=== PATIENT | female | born 1960 | race Two or more races ===

== ENCOUNTER 2017-11-26 09:33 | Outpatient (CLI) | payer OTHER | END 2017-11-26 16:41 | disposition home or self-care (01) | LOC: MAMO-SONO 09:33 | DX: Z12.31 Encounter for screening mammogram for malignant neoplasm of breast (principal); Z87.898 Personal history of other specified conditions; N62 Hypertrophy of breast ==

== ENCOUNTER 2017-11-26 10:57 | Outpatient (CLI) | payer OTHER | END 2017-11-26 11:30 | disposition home or self-care (01) | LOC: NUCLEAR 10:57 | DX: M81.0 Age-related osteoporosis without current pathological fracture (principal) ==

== ENCOUNTER → 2017-11-26 | Outpatient (CLI) | payer OTHER | END | disposition home or self-care (01) | LOC: LAB 07:35 | DX: I10 Essential (primary) hypertension (principal); E11.9 Type 2 diabetes mellitus without complications; E03.8 Other specified hypothyroidism; E78.2 Mixed hyperlipidemia; K92.1 Melena; D64.0 Hereditary sideroblastic anemia; M81.0 Age-related osteoporosis without current pathological fracture ==

== ENCOUNTER → 2018-01-02 | Emergency (ER) | payer OTHER ==
[~2018-01-02] VITALS: Ht 152.4 cm; Wt 78.0 kg
[~2018-01-02] MED LIST: ATIVAN1 M1; AUBAGIO14 MG; WELLBUTRIN XL150 M1
== END | disposition home or self-care (01) ==
LOC: ER 16:13
DX: J11.1 Influenza due to unidentified influenza virus with other respiratory manifestations (principal); K52.9 Noninfective gastroenteritis and colitis, unspecified

== ENCOUNTER 2018-01-04 10:52 | Emergency (ER) | payer OTHER ==
[~2018-01-04] VITALS: Ht 152.4 cm; Wt 78.0 kg
== END 2018-01-04 16:28 | disposition home or self-care (01) ==
LOC: ER 10:52
DX: K52.9 Noninfective gastroenteritis and colitis, unspecified (principal)

== ENCOUNTER 2018-01-29 10:47 | Outpatient (CLI) | payer OTHER | END 2018-01-29 11:15 | disposition home or self-care (01) | LOC: LAB 10:47 | DX: Z86.010 Personal history of colon polyps (principal); K21.9 Gastro-esophageal reflux disease without esophagitis; R10.13 Epigastric pain; R74.0 Nonspecific elevation of levels of transaminase and lactic acid dehydrogenase [LDH]; R19.7 Diarrhea, unspecified ==

== ENCOUNTER → 2018-01-29 | Outpatient (CLI) | payer OTHER | END | disposition home or self-care (01) | LOC: SONOGRAMA 09:55 | DX: Z86.010 Personal history of colon polyps (principal); K21.9 Gastro-esophageal reflux disease without esophagitis; R74.0 Nonspecific elevation of levels of transaminase and lactic acid dehydrogenase [LDH]; R10.13 Epigastric pain; R10.30 Lower abdominal pain, unspecified; R19.7 Diarrhea, unspecified ==

== ENCOUNTER 2018-05-30 12:40 | Emergency (ER) | payer OTHER ==
[~2018-05-30] VITALS: Ht 162.6 cm; Wt 77.1 kg
[2018-05-30] MEDS ORDERED: NEURONTIN300 MG (13:01)
== END 2018-05-30 15:58 | disposition home or self-care (01) ==
LOC: ER 12:40
DX: N76.4 Abscess of vulva (principal)

== ENCOUNTER 2019-01-15 12:11 | Outpatient (CLI) | payer OTHER ==
[~2019-01-15 12:11] MED LIST changes: +NEURONTIN300 MG
== END 2019-01-15 12:13 | disposition home or self-care (01) ==
LOC: MAMO-SONO 12:11
DX: Z12.31 Encounter for screening mammogram for malignant neoplasm of breast (principal); Z87.898 Personal history of other specified conditions; N60.11 Diffuse cystic mastopathy of right breast; N60.12 Diffuse cystic mastopathy of left breast

== ENCOUNTER 2020-03-28 06:10 | Day surgery (SDC) | payer OTHER ==
[~2020-03-28 06:10] MED LIST changes: +SYNTHROID50 MCG PO
== END 2020-03-28 13:20 | disposition home or self-care (01) ==
LOC: CIR.AMB 06:10 → ADM 08:00 → CIR.AMB 08:45
PROVIDERS: ATTEND Orthopaedic Surgery Hand Surgery
DX: M71.332 Other bursal cyst, left wrist (principal); M65.842 Other synovitis and tenosynovitis, left hand

== ENCOUNTER 2020-05-10 14:15 | Outpatient (CLI) | payer OTHER | END 2020-05-10 14:26 | disposition home or self-care (01) | LOC: RAD 14:15 | PROVIDERS: ATTEND Internal Medicine Cardiovascular Disease | DX: M12.872 Other specific arthropathies, not elsewhere classified, left ankle and foot (principal) ==

== ENCOUNTER 2020-05-10 15:24 | Outpatient (CLI) | payer OTHER | END 2020-05-10 18:00 | disposition home or self-care (01) | LOC: LAB 15:24 | PROVIDERS: ATTEND Internal Medicine Cardiovascular Disease | DX: R10.84 Generalized abdominal pain (principal) ==

== ENCOUNTER 2021-04-30 12:30 | Emergency (ER) | payer OTHER ==
[~2021-04-30] VITALS: Ht 154.9 cm; Wt 78.9 kg
[2021-04-30] MEDS ORDERED: WELLBUTRIN XL300 MG PO (16:18)
[2021-04-30] MEDS ORDERED: ANALPRAM HC 2.530 GM RECTAL (16:39)
== END 2021-04-30 16:50 | disposition home or self-care (01) ==
LOC: ER 12:30
DX: K64.9 Unspecified hemorrhoids (principal)

== ENCOUNTER 2022-09-19 13:59 | Emergency (ER) | payer OTHER ==
[~2022-09-19] VITALS: Ht 154.9 cm; Wt 77.1 kg
[~2022-09-19 13:59] MED LIST changes: +ANALPRAM HC 2.530 GM RECTAL; +WELLBUTRIN XL300 MG PO
[2022-09-19] MEDS ORDERED: GEMFIBROZIL600 MG PO (14:25)
[2022-09-19] MEDS ORDERED: LYVISPAH20 MG PO (14:25)
[2022-09-19] MEDS ORDERED: CLONAZEPAM0.5 MG PO (14:26)
[2022-09-19] MEDS ORDERED: SERTRALINE20 MG/1 ML (14:26)
== END 2022-09-19 15:20 | disposition home or self-care (01) ==
LOC: ER 13:59
DX: M54.50 Low back pain, unspecified (principal)

== ENCOUNTER 2025-05-31 07:30 | Inpatient (IN) | payer OTHER ==
[~2025-05-31] VITALS: Ht 121.9 cm; Wt 77.1 kg
[~2025-05-31 07:30] MED LIST changes: +CLONAZEPAM0.5 MG PO; +GEMFIBROZIL600 MG PO; +LYVISPAH20 MG PO; +SERTRALINE20 MG/1 ML
[2025-05-31] MEDS ORDERED: ROSUVASTATIN CAL5 MG PO (10:12)
[2025-05-31 10:43] LABS: BASO % 1.5 % (0.1-1.2); EOS # 0.52 (0.04-0.54); EOS % 10.8 % (0.7-7.0); LYMPH # 1.61 (1.18-3.74); LYMPH % 33.5 % (19.3-53.1); MEAN PLATELET VOLUME 9.80 fl (9.4-12.4); MONO # 0.55 (0.24-0.82); MONO % 11.4 % (4.7-12.5); NEUT # 2.05 (1.56-6.13); NEUT % 42.6 % (34.0-71.1); RED CELL DISTRIBUTION WIDTH 13.3 % (11.6-14.4)
[2025-05-31 10:45] LABS: URINE APPEARANCE Clear; URINE BILIRRUBIN Negative (NEGATIVE); URINE BLOOD Negative; URINE COLOR Yellow; URINE GLUCOSE Negative (NEGATIVE); URINE KETONE Negative (NEGATIVE); URINE LEUKOCYTE Negative; URINE NITRATE Negative; URINE PROTEIN Negative (NEGATIVE); URINE UROBILINOGEN 0.2 E.U./dl
[2025-05-31 10:46] LABS: URINE BACTERIA 242.2 uL (0.0-1933); URINE CAST 0.14 uL (0.0-1.40); URINE EPITHELIAL CELLS 5.5 uL (0.0-38.8); URINE RBC 1.7 uL (0.0-20.8); URINE WBC 2.1 uL (0.0-23.2)
[2025-05-31 11:01] LABS: COVID-19 AG NEGATIVE (NEGATIVE)
[2025-05-31 11:15] LABS: INR 1.01
[2025-05-31 11:17] LABS: ALT/SGPT 19.0 U/L (12-78); AST/SGOT 13.0 U/L (15-37); BILIRUBIN TOTAL 0.49 mg/dL (0.3-1.2); BUN CREA RATIO 19.0 (7.0-25.0); CHOL HDL RATIO 3.6 (0-5.0); CREATININE SERUM 0.8 mg/dL (0.55-1.02); GFR 71.99; GLOBULINA 4.0 G/DL (2.4-3.5); GLUCOSE FASTING 105.0 mg/dL (65-100); HDL 40.0 mg/dl (40-60); LDL 70.0 mg/dl (0-130); OSMOLALITY SERUM 286.0 MOSM/KG (275-295); VLDL 32.0 (0-39)
[2025-05-31 13:18] LABS: RH POSITIVE
[2025-06-03] MEDS ORDERED: CEFAZOLIN SODIUM 1,000 MG VIAL ONE (12:45)
[2025-06-03] MEDS ORDERED: BUPIVACAINE HCL/MPF 0.5% 30ML VIAL ONE (14:46)
[2025-06-03] MEDS ORDERED: VANCOMYCIN HCL 1,000 MG VIAL IR ONE (16:00)
[2025-06-03] MEDS ORDERED: CEFAZOLIN SODIUM 1,000 MG VIAL IV ONE (16:00)
[2025-06-03] MEDS ORDERED: LIDOCAINE HCL 1%/EPINEPHRINE 20ML VIAL IJ ONE (16:00)
[2025-06-03] MEDS ORDERED: BUPIVACAINE HCL 30 ML VIAL IJ ONE (16:00)
[2025-06-03] MEDS ORDERED: MORPHINE SULFATE 4 MG/ML CARTRIDGE IV PRN (17:30)
[2025-06-03] MEDS ORDERED: ONDANSETRON HCL 2 MG/ML VIAL IV PRN (17:30)
[2025-06-03] MEDS ORDERED: OxyCODONE HCL 5 MG TABLET (ROXICODONE) PO PRN (17:30)
[2025-06-03] MEDS ORDERED: SODIUM CHLORIDE 0.45 % 1,000 ML IV SCH (17:30)
[2025-06-03] MEDS ORDERED: ACETAMINOPHEN 500 MG GEL..CAP PO SCH (18:00)
[2025-06-03 22:17] VITALS: BP 132/80; O2SAT 96
[2025-06-04] MEDS ORDERED: GABAPENTIN 300 MG CAPSULE PO SCH (01:00)
[2025-06-04] MEDS ORDERED: CEFAZOLIN SODIUM 1,000 MG VIAL IV SCH (01:00)
[2025-06-04 01:20] VITALS: BP 108/75; O2SAT 96
[2025-06-04 08:52] LABS: BASO % 0.6 % (0.1-1.2); EOS # 0.08 (0.04-0.54); EOS % 1.0 % (0.7-7.0); LYMPH # 1.72 (1.18-3.74); LYMPH % 21.1 % (19.3-53.1); MEAN PLATELET VOLUME 10.20 fl (9.4-12.4); MONO # 0.88 (0.24-0.82); MONO % 10.8 % (4.7-12.5); NEUT # 5.41 (1.56-6.13); NEUT % 66.4 % (34.0-71.1); RED CELL DISTRIBUTION WIDTH 13.5 % (11.6-14.4)
[2025-06-04] MEDS ORDERED: SENNOSIDES 1 TAB TABLET PO SCH (09:00)
[2025-06-04] MEDS ORDERED: DUI500 PO (10:18)
[2025-06-04] MEDS ORDERED: PERCOCET 5-3251 EACH PO (10:18)
[2025-06-05] MEDS ORDERED: LEVOTHYROXINE SODIUM 50 MCG TABLET PO SCH (06:00)
== END 2025-06-04 11:19 | disposition home or self-care (01) | DRG 483 ==
LOC: O/R 06-03 14:00 → SURH 06-03 19:35 → SURG 06-07 07:30
PROVIDERS: ADMIT Orthopaedic Surgery; ATTEND Orthopaedic Surgery
PROC: 0LS30ZZ Reposition Right Upper Arm Tendon, Open Approach (ICD-10-PCS; 2025-06-03)
PROC: 0PUC0KZ Supplement Right Humeral Head with Nonautologous Tissue Substitute, Open Approach (ICD-10-PCS; 2025-06-03)
PROC: 0PUC0JZ Supplement Right Humeral Head with Synthetic Substitute, Open Approach (ICD-10-PCS; 2025-06-03)
PROC: 0RRJ00Z Replacement of Right Shoulder Joint with Reverse Ball and Socket Synthetic Substitute, Open Approach (ICD-10-PCS; principal; 2025-06-03 15:45)
DX: M19.011 Primary osteoarthritis, right shoulder (principal); M75.121 Complete rotator cuff tear or rupture of right shoulder, not specified as traumatic; Z96.611 Presence of right artificial shoulder joint